=== PATIENT | female | born 1995 | race African-American/Black ===

== ENCOUNTER 2019-07-11 11:47 | Emergency (ER) | payer SELFPAY ==
[~2019-07-11] VITALS: Ht 167.6 cm; Wt 61.4 kg
[2019-07-11 12:10] VITALS: BP 115/78
--- NOTE | 2019-07-11 12:17 | NUR ---
PT STATED WE CAN REACH OUT TO UNCLE PATRICIO HAYES [phone] PARENTS LIVE IN [place]
--- NOTE | 2019-07-11 12:23 | NUR ---
ORIENTED TO NAME PLACE TIME AND EVENT---PT STATED SHE WAS LIVING IN CAMPUS IN [facility] BUT RECENTLY LOST ROOM AND BOARD
--- NOTE | 2019-07-11 13:03 | NUR ---
PT AMBULATED TO BED 9 AT THIS TIME.
--- NOTE | 2019-07-11 13:12 | NUR ---
PT REQUESTED TO WAIT IN LOBBY. WHEN ASKED TO COME BACK TO BED SHE DID NOT WANT TO BECAUSE SHE DID NOT WANT TO BE SEEN BY A DOCTOR. SHE STATED THE STIMULI WAS RAISING HER BLOOD PRESSURE.
--- NOTE | 2019-07-11 13:15 | NUR ---
PATIENT LEFT WITHOUT BEING SEEN BY DR. PAIGE. NO FURTHER CARE PROVIDED FOR PATIENT.
== END 2019-07-11 13:15 | disposition left against medical advice (07) ==
LOC: MED 11:47
DX: R53.1 Weakness (principal); E86.0 Dehydration; R44.0 Auditory hallucinations; Z53.21 Procedure and treatment not carried out due to patient leaving prior to being seen by health care provider
CPT/HCPCS: 82948